=== PATIENT | male | born 1995 | race Caucasian/White ===

== ENCOUNTER 2022-06-11 13:12 | Emergency (ER) | payer OTHER, SELFPAY ==
--- NOTE | ~2022-06-11 | XR_ITS ---
EXAMINATION: XR HUMERUS, LEFT CLINICAL INFORMATION: Pain COMPARISON: None TECHNIQUE: AP and lateral views of the left humerus. FINDINGS: There is no evidence of a left humeral fracture. No destructive bone lesion is identified. There is a right radial head fracture which is age-indeterminate and clinical correlation is suggested. A true lateral film was not performed however I have suspicion that there is an elbow effusion. XR/XR humerus LT IMPRESSION: No left femoral fracture identified. Nondisplaced radial head fracture.
[2022-06-11 13:34] VITALS: BP 153/89; PULSE 92; RESP 18; TEMP 36.8; O2SAT 96; BMI 41.3
--- NOTE | 2022-06-11 19:11 | ED_ITS ---
HPI - Extremity Problem General Chief complaint: Extremity Injury, Upper Stated complaint: Fall on left arm 06/10/22. broken? Time Seen by Provider: 06/11/22 18:52 Source: patient and family Mode of arrival: ambulatory History of Present Illness HPI Narrative: 27-year-old male who comes in with complaints of left arm pain with movement pain is diffuse in nature and starts in the shoulder and then radiates down between the thumb and index finger on left side. He denies numbness or tingling into the extremity and has full range of motion. Patient states that on 06/09 he tripped and fell onto his left side approximately 1999. Related Data Allergies Allergy/AdvReac Type Severity Reaction Status Date / Time bupropion [From Wellbutrin] AdvReac Seizure Verified 06/11/22 13:33 Review of Systems Review of Systems: Pertinent positives and negatives as stated in HPI 10 point review of systems otherwise negative. [facility] Past Medical History Source: nursing notes reviewed Social History Social History Advance Directives: No Advance Directives Information Provided: No Physical Exam Vital Signs: Vital Signs: Last Vital Signs Temp 98.2 F 06/11/22 13:34 Pulse 92 06/11/22 13:34 Resp 18 06/11/22 13:34 BP 153/89 H 06/11/22 13:34 Pulse Ox 96 06/11/22 13:34 O2 Del Method 06/11/22 13:34 BMI result Body Mass Index 41.3 VITAL SIGNS: Reviewed. GENERAL: Well developed, well nourished, in no acute distress. HEAD: Normocephalic/atraumatic EYES: PERRLA, EOMI EARS: Ext canals without abnormality OROPHARYNX: no oral lesions noted, posterior pharynx clear LUNGS: Normal breath sounds. No adventitious sounds or accessory muscle use. SpO2<96> CARDIOVASCULAR: Regular rate and rhythm without noted murmurs ABDOMEN: Soft, non-tender, non-distended with bowel sounds. MUSCULOSKELETAL: No tenderness, deformities, or effusions noted on gross inspection. EXTREMITIES: No cyanosis, clubbing or edema; LEFT UPPER EXTREMITY: Swelling noted at left elbow although there is full range of motion, palpable radial/ulnar pulses with good capillary refill and warm hand.. SKIN: Inspection of the skin reveals no rashes NEUROLOGIC: Alert and oriented x 4. Strength and sensation to light touch were grossly intact x 4. Course Course Course Narrative: 27-year-old male with history and clinical presentation suggestive of possible fracture or contusion, however on review of imaging studies patient is noted to have a nondisplaced radial head fracture. Patient received combination analgesics and was placed in a sling and otherwise discharged home in stable condition. Discharge Plan Discharge Clinical Impression: Fracture of radial head, closed Patient Disposition: Home, Self-Care Instructions: Elbow Fracture (ED), How to Use a Sling (ED) Additional Instructions: 1. Recommend [id number] Tylenol/ibuprofen as needed for pain control. Apply ice to unexposed skin for 5-10 minutes, 3 to 4 times a day. 2. Please keep the sling in place at all times other than when showering. 3. You have been provided with referral to follow-up with Orthopedics, please call the office Sunday morning to set up that appointment. Return to the ER for worsening symptoms. Referrals: Gregory Tabares MD [Primary Care Provider] - Emmanuel Gomez MD [Physician] - (Left radial head fracture, nondisplaced, placed in a sling.) Stand Alone Forms: Work/School Release
[2022-06-11 19:32] VITALS: BP 143/92; PULSE 81; RESP 18; TEMP 37; O2SAT 98
[2022-06-11] MEDS: Acetaminophen 325 MG TABLET 975 MG PO (19:37)
[2022-06-11] MEDS: Ibuprofen 400 MG TABLET PO (19:37)
== END 2022-06-11 19:50 | disposition home or self-care (01) ==
PROVIDERS: Emergency Provider Student in an Organized Health Care Education/Training Program; PCP Internal Medicine
DX: S52.125A Nondisplaced fracture of head of left radius, initial encounter for closed fracture (principal); W01.0XXA Fall on same level from slipping, tripping and stumbling without subsequent striking against object, initial encounter; Y93.9 Activity, unspecified; Y92.9 Unspecified place or not applicable; Y99.9 Unspecified external cause status
CPT/HCPCS: 73060; 99283; 99284

== ENCOUNTER 2022-06-22 13:23 | Outpatient (REF) | payer OTHER, SELFPAY ==
--- NOTE | ~2022-06-22 | XR_ITS ---
EXAMINATION: XR ELBOW, LEFT CLINICAL INFORMATION: Pain COMPARISON: Radiographs left humerus 06/11/2022 TECHNIQUE: AP, lateral, and oblique views of the left elbow. FINDINGS: Again noted is a nondisplaced radial head fracture. There is no joint effusion present. No significant degenerative changes. No focal soft tissue swelling. XR/XR elbow LT min 3V IMPRESSION: Nondisplaced radial head fracture again noted.
== END 2022-06-22 13:24 | disposition home or self-care (01) ==
LOC: HO.HOSX 13:23
PROVIDERS: Visit Provider Physician Assistant
DX: M25.522 Pain in left elbow (principal)
CPT/HCPCS: 73080

== ENCOUNTER 2022-07-20 | Outpatient (REF) | payer OTHER, SELFPAY ==
--- NOTE | ~2022-07-20 | XR_ITS ---
EXAMINATION: XR ELBOW, LEFT CLINICAL INFORMATION: Left elbow pain. COMPARISON: Left elbow radiographs dated 06/22/2022. TECHNIQUE: AP, lateral, and oblique views of the left elbow. FINDINGS: Redemonstration of a nondisplaced radial head fracture in unchanged anatomic alignment with increasing sclerosis/new bone formation when compared to the prior examination. No new fracture or dislocation. Resolution of the previously seen joint effusion. No joint space narrowing or marginal osteophytes. No osseous erosion. No abnormal soft tissue calcification. XR/XR elbow LT min 3V IMPRESSION: Radial head fracture in unchanged anatomic alignment with interval healing. Resolution of the previously seen joint effusion.
== END 2022-07-20 00:01 | disposition home or self-care (01) ==
LOC: HO.HOSX
PROVIDERS: Visit Provider Physician Assistant
DX: M25.522 Pain in left elbow (principal)
CPT/HCPCS: 73080